=== PATIENT | male | born 1965 | race Two or more races ===

== ENCOUNTER 2021-12-22 10:44 | Emergency (ER) | payer OTHER ==
[~2021-12-22] VITALS: Ht 154.9 cm; Wt 68.0 kg
[2021-12-22 11:19] VITALS: BP 158/95
[2021-12-22] MEDS ORDERED: KETOROLAC TROMETH 60MG/2ML VIAL IM ONE (11:30)
[2021-12-22] MEDS ORDERED: IBUP800T27 PO (12:26)
[2021-12-22] MEDS ORDERED: METH750T22 PO (12:26)
== END 2021-12-22 12:32 | disposition home or self-care (01) ==
LOC: ER 10:44
DX: S39.012A Strain of muscle, fascia and tendon of lower back, initial encounter (principal); S00.03XA Contusion of scalp, initial encounter; E11.9 Type 2 diabetes mellitus without complications; I10 Essential (primary) hypertension; W08.XXXA Fall from other furniture, initial encounter; Y93.89 Activity, other specified; Y92.89 Other specified places as the place of occurrence of the external cause; Y99.8 Other external cause status
CPT/HCPCS: 70450; 72100; 96372; 99284; J1885